=== PATIENT | male | born 1945 | race Caucasian/White ===

== ENCOUNTER 2018-12-08 21:58 | Inpatient (IN) | payer MEDICARE, MEDICAID ==
--- NOTE | 2018-12-08 22:17 | ED Physician Chart ---
ED Chief Complaint/HPI - Patient Information Date Seen:: 12/08/18 Time Seen:: 22:00 Chief Complaint:: depression History of Present Illness:: At his custodial facility patient stated earlier today that he had the desire to . He has no plans for how that might come about. Allergies:: Allergies Allergy/AdvReac Type Severity Reaction Status Date / Time iodine Allergy Verified 12/08/18 22:08 tamsulosin [From Flomax] Allergy Verified 12/08/18 22:08 Historian:: Patient Review:: Transfer documents Reviewed ED Review of Systems - Review of Systems General/Constitutional: No fever, No chills, No weight loss, No weakness, No diaphoresis, No edema, No loss of appetite Skin: No skin lesions, No rash, No bruising Head: No headache, No light-headedness Eyes: No loss of vision, No pain, No diplopia ENT: No earache, No nasal drainage, No sore throat, No tinnitus Neck: No neck pain, No swelling, No thyromegaly, No stiffness, No mass noted Cardio Vascular: No chest pain, No palpitations, No PND, No orthopnea, No edema Pulmonary: No SOB, No cough, No sputum, No wheezing GI: No nausea, No vomiting, No diarrhea, No pain, No melena, No hematochezia, No constipation, No hematemesis G/U: No dysuria, No frequency, No hematuria Musculoskeletal: No bone or joint pain, No back pain, No muscle pain Endocrine: No polyuria, No polydipsia Psychiatric: Depression, No anxiety, Suicidal ideation Hematopoietic: No bruising, No lymphadenopathy Allergic/Immuno: No urticaria, No angioedema Neurological: No syncope, No focal symptoms, No weakness, No paresthesia, No headache, No seizure, No dizziness, No confusion, No vertigo ED Past Medical History - Past Medical History Past Medical History: Other (chronic back pain) Family History: HTN Social History: Smoker Employment:: Smokes 6 cigarettes a day and stopped drinking alcohol 25 years ago Surgical History: other (rods placed in spine) Psychiatricy History: None Medication: Reviewed Family Medical History - Family Member Mother History Unknown: Yes ED Physical Exam - Physical Examination General/Constitutional: Awake, Well-developed, well-nourished, Alert, No distress, GCS 15, Non-toxic appearing, Ambulatory Head: Atraumatic Eyes: Lids, conjuctiva normal, PERRL, EOMI Skin: Nl inspection, No rash, No skin lesions, No ecchymosis, Well hydrated, No lymphadenopathy ENMT: External ears, nose nl, Nasal exam nl Other ENMT comments:: Full upper and lower dentures Neck: Nontender, Full ROM w/o pain, No JVD, No nuchal rigidity, No bruit, No mass, No stridor Respiratory: Nl effort/Exclusion, Clear to Auscultation, No Wheeze/Rhonchi/Rales Cardio Vascular: RRR, No murmur, gallop, rubs, NL S1 S2 GI: No tenderness/rebounding/guarding, No organomegaly, No hernia, Normal BS's, Nondistended, No mass/bruits, No McBurney tenderness : No CVA tenderness Extremities: No tenderness or effusion, Full ROM, normal strength in all extremities, No edema, Normal digits & nails Neuro/Psych: Alert/oriented, DTR's symmetric, Normal sensory exam, Normal motor strength, Judgement/insight normal, Mood normal, Normal gait, No focal deficits Misc: Normal back, No paraspinal tenderness ED Labs/Radiology/EKG Results - Lab Results Results: Laboratory Results WBC 6.9 Th/cmm (4.8-10.8) 12/08/18 22:18 RBC 3.76 Mil/cmm (3.80-5.80) L 12/08/18 22:18 Hgb 11.4 gm/dL (12-16) L 12/08/18 22:18 Hct 34.1 % (41.0-60) L 12/08/18 22:18 MCV 90.7 fl (80-99) 12/08/18 22:18 MCH 30.3 pg (27.0-31.0) 12/08/18 22:18 MCHC Differential 33.4 pg (28.0-36.0) 12/08/18 22:18 RDW 14.0 % (11.5-20.0) 12/08/18 22:18 Plt Count 274 Th/cmm (150-400) 12/08/18 22:18 MPV 8.4 fl 12/08/18 22:18 Neutrophils % 71.0 % (40.0-80.0) 12/08/18 22:18 Lymphocytes % 17.7 % (20.0-50.0) L 12/08/18 22:18 Monocytes % 8.1 % (2.0-10.0) 12/08/18 22:18 Eosinophils % 2.8 % (0.0-5.0) 12/08/18 22:18 Basophils % 0.4 % (0.0-2.0) 12/08/18 22:18 Sodium 144 mEq/L (136-145) 12/08/18 22:18 Potassium 3.7 mEq/L (3.5-5.1) 12/08/18 22:18 Chloride 107 mEq/L (98-107) 12/08/18 22:18 Carbon Dioxide 27.8 mEq/L (21.0-31.0) 12/08/18 22:18 Anion Gap 12.9 (7.0-16.0) 12/08/18 22:18 BUN 39 mg/dL (7-25) H 12/08/18 22:18 Creatinine 2.3 mg/dL (0.7-1.3) H 12/08/18 22:18 Est GFR ( Amer) TNP 12/08/18 22:18 Est GFR (Non-Af Amer) TNP 12/08/18 22:18 BUN/Creatinine Ratio 17.0 12/08/18 22:18 Glucose 115 mg/dL (70-105) H 12/08/18 22:18 Calcium 9.4 mg/dL (8.6-10.3) 12/08/18 22:18 Total Bilirubin 0.5 mg/dL (0.3-1.0) 12/08/18 22:18 AST 7 U/L (13-39) L 12/08/18 22:18 ALT 8 U/L (7-52) 12/08/18 22:18 Alkaline Phosphatase 49 U/L (34-104) 12/08/18 22:18 Total Protein 6.4 gm/dL (6.0-8.3) 12/08/18 22:18 Albumin 4.0 gm/dL (4.2-5.5) L 12/08/18 22:18 Globulin 2.4 gm/dL 12/08/18 22:18 Albumin/Globulin Ratio 1.7 (1.0-1.8) 12/08/18 22:18 Triglycerides 110 mg/dL (<150) 12/08/18 22:18 Cholesterol 188 mg/dL (<200) 12/08/18 22:18 LDL Cholesterol Direct 132 mg/dL (75-193) 12/08/18 22:18 HDL Cholesterol 39 mg/dL (23-92) 12/08/18 22:18 - EKG Interpretations Rate & Rhythm: normal sinus rhythm with a rate of 63 [place]: normal Comments:: Left ventricular hypertrophy ED Septic Shock - . Is Septic Shock (SBP<90, OR Lactate>4 mmol\L) present?: No ED Reassessment (Disposition) - Reassessment Reassessment Condition:: Unchanged - Diagnosis Diagnosis:: Depression; nicotine use - Patient Disposition Admitted to:: [facility] Admitting Medical Physician:: Boby Alva Admitting Psych Physician:: Alba Hdz Condition at Disposition:: Stable, Unchanged
[2018-12-08 22:25] LABS: % BASOPHILS 0.4 % (0.0-2.0); % EOSINOPHILS 2.8 % (0.0-5.0); % LYMPHOCYTES 17.7 % (20.0-50.0); % MONOCYTES 8.1 % (2.0-10.0); EOSINOPHILE ABSOLUTE 0.2 Th/cmm (0.1-0.4); HEMATOCRIT 34.1 % (41.0-60); HEMOGLOBIN 11.4 gm/dL (12-16); LYMPHOCYTE ABSOLUTE 1.2 Th/cmm (1.5-3.0); MEAN CELL VOLUME 90.7 fl (80-99); MEAN CORPUSCULAR HEMOGLOBIN 30.3 pg (27.0-31.0); MEAN CORPUSCULAR HGB CONC 33.4 pg (28.0-36.0); MEAN PLATELET VOLUME 8.4 fl; MONOCYTE ABSOLUTE 0.6 Th/cmm (0.3-1.0); NEUTROPHILE ABSOLUTE 4.9 Th/cmm (1.8-8.0); PLATELET COUNT 274 Th/cmm (150-400); RED BLOOD COUNT 3.76 Mil/cmm (3.80-5.80); WHITE BLOOD COUNT 6.9 Th/cmm (4.8-10.8)
[2018-12-08 22:43] LABS: ALB/GLOB RATIO 1.7 (1.0-1.8); ALKALINE PHOSPHATASE 49 U/L (34-104); ANION GAP 12.9 (7.0-16.0); BILIRUBIN,TOTAL 0.5 mg/dL (0.3-1.0); BUN - UREA NITROGEN 39 mg/dL (7-25); CALCIUM SERUM 9.4 mg/dL (8.6-10.3); CARBON DIOXIDE 27.8 mEq/L (21.0-31.0); CHLORIDE 107 mEq/L (98-107); CHOLESTEROL 188 mg/dL (<200); CREATININE - SERUM 2.3 mg/dL (0.7-1.3); GLUCOSE 115 mg/dL (70-105); HDL -HIGH DENSITY LIPOPROTEIN 39 mg/dL (23-92); POTASSIUM SERUM 3.7 mEq/L (3.5-5.1); SGOT 7 U/L (13-39); SGPT/ALT 8 U/L (7-52); SODIUM SERUM 144 mEq/L (136-145); TOTAL PROTEIN,SERUM 6.4 gm/dL (6.0-8.3); TRIGLYCERIDES 110 mg/dL (<150)
[2018-12-09] MEDS ORDERED: Magnesium Hydroxide (MOM) 30 mL UDC PO PRN (01:06)
[2018-12-09 01:34] VITALS: BP 130/78
[2018-12-09] MEDS: Albuterol Nebulizer 2.5mg/3mL HHN SCH ×2 (08:00→13:00)
[2018-12-09 08:08] LABS: CHOLESTEROL 195 mg/dL (<200); HDL -HIGH DENSITY LIPOPROTEIN 40 mg/dL (23-92); TRIGLYCERIDES 115 mg/dL (<150)
[2018-12-09] MEDS: Heparin Sod 5,000Units/ML 5,000 UNITS/ML VIAL SUBQ SCH ×2 (08:34→21:53)
[2018-12-09] MEDS: Menthol/Zinc Oxide Oint 113gm Tube TP SCH (09:00)
[2018-12-09] MEDS: Budesonide 0.5 Mg/2 mL Ud HHN SCH (09:00)
--- NOTE | 2018-12-09 21:05 | History & Physical ---
ADMIT DATE: HISTORY OF PRESENT ILLNESS: The patient is a 73-year-old male with long history of psychosis, admitted to [facility] under Dr. Hdz's service for evaluation and treatment. The patient denies any chest pain, shortness of breath, nausea, vomiting, fever or chills. PAST MEDICAL HISTORY: Significant for gastroesophageal reflux, chronic kidney disease and psychosis. PAST SURGICAL HISTORY: No recent surgery. ALLERGIES: None. SOCIAL HISTORY: Chronic smoker. No alcohol, no drugs. FAMILY HISTORY: Noncontributory. MEDICATIONS: Follow admission reconciliation. REVIEW OF SYSTEMS: RENAL SYSTEM: No history of chronic renal disorder. CARDIOVASCULAR SYSTEM: No coronary artery disease. ENDOCRINE SYSTEM: No diabetes or thyroid problem. GASTROINTESTINAL SYSTEM: No upper or lower gastrointestinal bleed. NEUROLOGICAL SYSTEM: No seizure disorder. SKELETOMUSCULAR SYSTEM: No muscular dystrophy. HEMATOLOGICAL SYSTEM: No bleeding tendencies. RESPIRATORY SYSTEM: No asthma. GENITOURINARY: No dysuria or hematuria. PHYSICAL EXAMINATION: GENERAL: She is awake, alert, oriented. VITAL SIGNS: Temperature is 97.8, heart rate 65, blood pressure 137/78. HEENT: Normocephalic. Pupils reacting equal to light and accommodation. Sclerae clear. NECK: Supple. Negative for lymphadenopathy, JVD, or bruit. CHEST: Entry of air bilaterally mild diminished. HEART: S1, S2 normal. No murmur or gallop rhythm. ABDOMEN: Soft, bowel sounds positive. EXTREMITIES: No edema. NEUROLOGIC: Awake, alert, mildly confused. No focal muscle deficits. Cranial nerves 2-12 are intact. LABORATORY DATA: White blood 6.9, hemoglobin 11.4, hematocrit 34.1, and platelet is 274. Sodium 144, potassium 3.7, BUN 39, creatinine 2.3. ASSESSMENT: 1. Chronic obstructive pulmonary disease. 2. Gastroesophageal reflux. 3. Anemia. 4. Psychosis. PLAN: The patient admitted to the hospital under Dr. Hdz's service. Medical problems addressed during hospitalization is psychosis. Medical problems to be addressed at discharge are anemia, COPD. The patient is medically stable for activity. The patient is a full code. Thank you, Dr. Hdz, for asking me to see your patient. JOB# [id number]
[2018-12-10] MEDS: Heparin Sod 5,000Units/ML 5,000 UNITS/ML VIAL SUBQ SCH ×2 (08:41→20:28)
[2018-12-10] MEDS: Menthol/Zinc Oxide Oint 113gm Tube TP SCH ×2 (08:41→16:02)
[2018-12-10] MEDS: Escitalopram Oxalate 5 mg Tab PO SCH (16:01)
--- NOTE | 2018-12-10 18:46 | Internal Medicine Prog Note ---
Internal Medicine Subjective - Subjective Service Date: 12/10/18 Patient seen and examined:: without staff (HE FEELS WELL) Patient is:: awake, confused Per staff patient has:: no adverse event Internal Medicine Objective - Results Result Diagrams: 12/08/18 22:18 12/08/18 22:18 Recent Labs: Laboratory Last Values WBC 6.9 Th/cmm (4.8-10.8) 12/08/18 22:18 RBC 3.76 Mil/cmm (3.80-5.80) L 12/08/18 22:18 Hgb 11.4 gm/dL (12-16) L 12/08/18 22:18 Hct 34.1 % (41.0-60) L 12/08/18 22:18 MCV 90.7 fl (80-99) 12/08/18 22:18 MCH 30.3 pg (27.0-31.0) 12/08/18 22:18 MCHC Differential 33.4 pg (28.0-36.0) 12/08/18 22:18 RDW 14.0 % (11.5-20.0) 12/08/18 22:18 Plt Count 274 Th/cmm (150-400) 12/08/18 22:18 MPV 8.4 fl 12/08/18 22:18 Neutrophils % 71.0 % (40.0-80.0) 12/08/18 22:18 Lymphocytes % 17.7 % (20.0-50.0) L 12/08/18 22:18 Monocytes % 8.1 % (2.0-10.0) 12/08/18 22:18 Eosinophils % 2.8 % (0.0-5.0) 12/08/18 22:18 Basophils % 0.4 % (0.0-2.0) 12/08/18 22:18 Sodium 144 mEq/L (136-145) 12/08/18 22:18 Potassium 3.7 mEq/L (3.5-5.1) 12/08/18 22:18 Chloride 107 mEq/L (98-107) 12/08/18 22:18 Carbon Dioxide 27.8 mEq/L (21.0-31.0) 12/08/18 22:18 Anion Gap 12.9 (7.0-16.0) 12/08/18 22:18 BUN 39 mg/dL (7-25) H 12/08/18 22:18 Creatinine 2.3 mg/dL (0.7-1.3) H 12/08/18 22:18 Est GFR ( Amer) TNP 12/08/18 22:18 Est GFR (Non-Af Amer) TNP 12/08/18 22:18 BUN/Creatinine Ratio 17.0 12/08/18 22:18 Glucose 115 mg/dL (70-105) H 12/08/18 22:18 Calcium 9.4 mg/dL (8.6-10.3) 12/08/18 22:18 Total Bilirubin 0.5 mg/dL (0.3-1.0) 12/08/18 22:18 AST 7 U/L (13-39) L 12/08/18 22:18 ALT 8 U/L (7-52) 12/08/18 22:18 Alkaline Phosphatase 49 U/L (34-104) 12/08/18 22:18 Total Protein 6.4 gm/dL (6.0-8.3) 12/08/18 22:18 Albumin 4.0 gm/dL (4.2-5.5) L 12/08/18 22:18 Globulin 2.4 gm/dL 12/08/18 22:18 Albumin/Globulin Ratio 1.7 (1.0-1.8) 12/08/18 22:18 Triglycerides 115 mg/dL (<150) 12/09/18 07:36 Cholesterol 195 mg/dL (<200) 12/09/18 07:36 LDL Cholesterol Direct 136 mg/dL (75-193) 12/09/18 07:36 HDL Cholesterol 40 mg/dL (23-92) 12/09/18 07:36 TSH 1.53 uIU/ml (0.34-5.60) 12/08/18 22:18 Valproic Acid 31.1 ug/mL (50.0-100.0) L 12/08/18 22:18 RPR NONREACTIVE (NONREACTIVE) 12/08/18 22:18 - Physical Exam Vitals and I&O: Vital Signs Temp 98.1 F 12/10/18 14:00 Pulse 77 12/10/18 14:00 Resp 20 12/10/18 14:00 BP 120/70 12/10/18 14:00 Pulse Ox 96 12/10/18 14:00 Intake & Output 12/09/18 12/10/18 12/10/18 18:59 06:59 18:59 Intake Total 950 120 Balance 950 120 Intake: Oral 950 120 Other: # Voids 3 2 # Bowel Movements 1 0 Active Medications: Current Medications Acetaminophen (Tylenol) 650 mg PO Q4HR PRN PRN Reason: Pain or Fever >101 Stop: 02/07/19 01:05 Last Admin: 12/09/18 06:53 Dose: 650 mg Albuterol Sulfate (Albuterol 2.5mg/3ml Neb Ud) 2.5 mg HHN Q6HRT [facility] Stop: 02/07/19 07:59 Last Admin: 12/09/18 13:00 Dose: Not Given Bisacodyl (Dulcolax 10 Mg Supp) 10 mg RC DAILY PRN PRN Reason: Constipation Stop: 02/07/19 01:05 Budesonide (Pulmicort) 0.5 mg HHN BIDRT [facility] Stop: 02/07/19 07:59 Last Admin: 12/09/18 09:00 Dose: Not Given Calamine/Phenol (Calmoseptine) 1 appl TP BID [facility] Stop: 02/07/19 08:59 Last Admin: 12/10/18 16:02 Dose: 1 appl Divalproex Sodium (Depakote Er) 250 mg PO DAILY [facility]; Protocol Stop: 02/07/19 08:59 Last Admin: 12/10/18 16:01 Dose: 250 mg Escitalopram Oxalate (Lexapro) 5 mg PO DAILY [facility]; Protocol Stop: 02/08/19 08:59 Last Admin: 12/10/18 16:01 Dose: 5 mg Famotidine (Pepcid) 20 mg PO DAILY [facility] Stop: 02/07/19 08:59 Last Admin: 12/10/18 08:40 Dose: 20 mg Fludrocortisone Acetate (Florinef) 0.1 mg PO BID [facility] Stop: 02/07/19 08:59 Last Admin: 12/10/18 16:01 Dose: 0.1 mg Heparin Sodium (Porcine) (Heparin) 5,000 units SUBQ Q12HR [facility] Stop: 02/07/19 08:59 Last Admin: 12/10/18 08:41 Dose: 5,000 units Magnesium Hydroxide (Milk Of Magnesia) 30 ml PO DAILY PRN PRN Reason: Constipation Stop: 02/07/19 01:05 Midodrine (Proamatine) 5 mg PO DAILY [facility] Stop: 02/07/19 08:59 Last Admin: 12/10/18 08:55 Dose: Not Given Ondansetron HCl (Zofran Odt) 4 mg PO Q8HR PRN PRN Reason: Nausea Stop: 02/07/19 01:05 Senna (Senna) 8.6 mg PO BID [facility] Stop: 02/07/19 08:59 Last Admin: 12/10/18 16:02 Dose: 8.6 mg General: alert, demented HEENT: NC/AT, PERRLA, EOMI, anicteric sclerae, throat clear Neck: Supple, No JVD, No thyromegaly, +2 carotid pulse wo bruit, No LAD Cardiovascular: RRR, Normal S1, Normal S2, without murmur Abdomen: soft, non-tender Extremities: clear Neurological: no change Internal Medicine Assmt/Plan - Assessment Assessment: 1.COPD. 2.ANEMIA. 3.PSYCHOSIS. Nutritional Asmnt/Malnutr-PDOC - Dietary Evaluation Malnutrition Findings (Please click <Entered> for more info): Nutritional Asmnt/Malnutrition Start: 12/09/18 10: 09 Text: Status: Complete Freq: Protocol: Document 12/09/18 10:09 LCHENG (Rec: 12/09/18 10:22 LCHENG [email or web address]) Nutritional Asmnt/Malnutrition Patient General Information Nutritional Screening High Risk Consult Diagnosis severe depression Pertinent Medical Hx/Surgical Hx chronic back pain Subjective Information Consult received for erythema to both buttocks. Lakhwinder Draper noted. Current Diet Order/ Nutrition Support regular Pertinent Medications pepcid, heparin, senna Pertinent Labs 5/ BUN 39, Cr 2.3, GLucose 115, ALb 4.0 Nutritional Hx/Data Height 1.75 m Height (Calculated Centimeters) 175.3 Current Weight (lbs) 79.379 kg Weight (Calculated Kilograms) 79.4 Weight (Calculated Grams) 77316.7 [place] Body Weight 148 Body Mass Index (BMI) 25.8 Weight Status Overweight GI Symptoms GI Symptoms None Last BM none Difficult in: None Skin Integrity/Comment: erythema to R/L buttock Estimated Nutritional Goals BEE in Kcals: Using Current wt Calories/Kcals/Kg 23-27 Kcals Calculated 1723-1108 Protein: Using Current wt Protein g/k.8 Protein Calculated 63 Fluid: ml 1817-2133ml (1ml/kcal) Nutritional Problem No current Nutrition Prob Problem N/A Intervention/Recommendation Comments 1. Continue with regular diet as ordered. 2. Monitor PO intake, wt, labs and skin integrity 3. F/U as moderate risk in 3-5 days Expected Outcomes/Goals Expected Outcomes/Goals 1. PO intake to meet at least 75% of nutritional needs. 2. Wt stability, skin to remain intact, labs to approach WNL.
--- NOTE | 2018-12-10 21:18 | Progress Notes ---
DATE: 12/10/2018 Case was discussed with staff of the patient and reviewed records. I also met with his who happens to be there. The patient was able to recognize his . His is 86 years of age, 14 years senior to him. She reports they lost their appointment and that is when he started feeling depressed. The patient tolerated the Lexapro with no side effects. He tend to smile. However, he is not a very good historian. He is sleeping better, eating better. No side effects of the medication, no sedation, no nausea. We will continue to work with the patient in group therapy, milieu therapy, and adjust medication as needed. JOB# [id number]
[2018-12-11] MEDS: Albuterol Nebulizer 2.5mg/3mL HHN SCH ×3 (08:27→19:14)
[2018-12-11] MEDS: Budesonide 0.5 Mg/2 mL Ud HHN SCH ×2 (08:28→19:14)
[2018-12-11] MEDS: Heparin Sod 5,000Units/ML 5,000 UNITS/ML VIAL SUBQ SCH ×2 (09:09→22:40)
[2018-12-11] MEDS: Escitalopram Oxalate 5 mg Tab PO SCH (09:12)
[2018-12-11] MEDS: Menthol/Zinc Oxide Oint 113gm Tube TP SCH ×2 (09:13→17:05)
--- NOTE | 2018-12-11 18:01 | Internal Medicine Prog Note ---
Internal Medicine Subjective - Subjective Service Date: 12/11/18 Patient seen and examined:: without staff (HE IS DOIG BETTER) Patient is:: awake, confused Per staff patient has:: no adverse event Internal Medicine Objective - Results Result Diagrams: 12/08/18 22:18 12/08/18 22:18 Recent Labs: Laboratory Last Values WBC 6.9 Th/cmm (4.8-10.8) 12/08/18 22:18 RBC 3.76 Mil/cmm (3.80-5.80) L 12/08/18 22:18 Hgb 11.4 gm/dL (12-16) L 12/08/18 22:18 Hct 34.1 % (41.0-60) L 12/08/18 22:18 MCV 90.7 fl (80-99) 12/08/18 22:18 MCH 30.3 pg (27.0-31.0) 12/08/18 22:18 MCHC Differential 33.4 pg (28.0-36.0) 12/08/18 22:18 RDW 14.0 % (11.5-20.0) 12/08/18 22:18 Plt Count 274 Th/cmm (150-400) 12/08/18 22:18 MPV 8.4 fl 12/08/18 22:18 Neutrophils % 71.0 % (40.0-80.0) 12/08/18 22:18 Lymphocytes % 17.7 % (20.0-50.0) L 12/08/18 22:18 Monocytes % 8.1 % (2.0-10.0) 12/08/18 22:18 Eosinophils % 2.8 % (0.0-5.0) 12/08/18 22:18 Basophils % 0.4 % (0.0-2.0) 12/08/18 22:18 Sodium 144 mEq/L (136-145) 12/08/18 22:18 Potassium 3.7 mEq/L (3.5-5.1) 12/08/18 22:18 Chloride 107 mEq/L (98-107) 12/08/18 22:18 Carbon Dioxide 27.8 mEq/L (21.0-31.0) 12/08/18 22:18 Anion Gap 12.9 (7.0-16.0) 05/02/19 22:18 BUN 39 mg/dL (7-25) H 12/08/18 22:18 Creatinine 2.3 mg/dL (0.7-1.3) H 12/08/18 22:18 Est GFR ( Amer) TNP 12/08/18 22:18 Est GFR (Non-Af Amer) TNP 12/08/18 22:18 BUN/Creatinine Ratio 17.0 12/08/18 22:18 Glucose 115 mg/dL (70-105) H 12/08/18 22:18 Calcium 9.4 mg/dL (8.6-10.3) 12/08/18 22:18 Total Bilirubin 0.5 mg/dL (0.3-1.0) 12/08/18 22:18 AST 7 U/L (13-39) L 12/08/18 22:18 ALT 8 U/L (7-52) 12/08/18 22:18 Alkaline Phosphatase 49 U/L (34-104) 12/08/18 22:18 Total Protein 6.4 gm/dL (6.0-8.3) 12/08/18 22:18 Albumin 4.0 gm/dL (4.2-5.5) L 12/08/18 22:18 Globulin 2.4 gm/dL 12/08/18 22:18 Albumin/Globulin Ratio 1.7 (1.0-1.8) 12/08/18 22:18 Triglycerides 115 mg/dL (<150) 12/09/18 07:36 Cholesterol 195 mg/dL (<200) 12/09/18 07:36 LDL Cholesterol Direct 136 mg/dL (75-193) 12/09/18 07:36 HDL Cholesterol 40 mg/dL (23-92) 12/09/18 07:36 TSH 1.53 uIU/ml (0.34-5.60) 12/08/18 22:18 Valproic Acid 31.1 ug/mL (50.0-100.0) L 12/08/18 22:18 RPR NONREACTIVE (NONREACTIVE) 12/08/18 22:18 - Physical Exam Vitals and I&O: Vital Signs Temp 97.4 F 12/11/18 14:07 Pulse 81 12/11/18 14:07 Resp 18 12/11/18 17:21 BP 104/61 12/11/18 14:07 Pulse Ox 95 12/11/18 14:07 Intake & Output 12/10/18 12/11/18 12/11/18 18:59 06:59 18:59 Intake Total 1400 120 Balance 1400 120 Intake: Oral 1400 120 Other: # Voids 3 2 # Bowel Movements 0 0 Active Medications: Current Medications Acetaminophen (Tylenol) 650 mg PO Q4HR PRN PRN Reason: Pain or Fever >101 Stop: 02/07/19 01:05 Last Admin: 12/09/18 06:53 Dose: 650 mg Albuterol Sulfate (Albuterol 2.5mg/3ml Neb Ud) 2.5 mg HHN Q6HRT [facility] Stop: 02/07/19 07:59 Last Admin: 12/11/18 13:00 Dose: Not Given Bisacodyl (Dulcolax 10 Mg Supp) 10 mg RC DAILY PRN PRN Reason: Constipation Stop: 02/07/19 01:05 Budesonide (Pulmicort) 0.5 mg HHN BIDRT [facility] Stop: 02/07/19 07:59 Last Admin: 12/11/18 08:28 Dose: 0.5 mg Calamine/Phenol (Calmoseptine) 1 appl TP BID [facility] Stop: 02/07/19 08:59 Last Admin: 12/11/18 17:05 Dose: 1 appl Divalproex Sodium (Depakote Er) 250 mg PO DAILY [facility]; Protocol Stop: 02/07/19 08:59 Last Admin: 12/11/18 09:12 Dose: 250 mg Escitalopram Oxalate (Lexapro) 5 mg PO DAILY [facility]; Protocol Stop: 02/08/19 08:59 Last Admin: 12/11/18 09:12 Dose: 5 mg Famotidine (Pepcid) 20 mg PO DAILY [facility] Stop: 02/07/19 08:59 Last Admin: 12/11/18 09:12 Dose: 20 mg Fludrocortisone Acetate (Florinef) 0.1 mg PO BID [facility] Stop: 02/07/19 08:59 Last Admin: 12/11/18 16:55 Dose: 0.1 mg Heparin Sodium (Porcine) (Heparin) 5,000 units SUBQ Q12HR [facility] Stop: 02/07/19 08:59 Last Admin: 12/11/18 09:09 Dose: 5,000 units Magnesium Hydroxide (Milk Of Magnesia) 30 ml PO DAILY PRN PRN Reason: Constipation Stop: 02/07/19 01:05 Midodrine (Proamatine) 5 mg PO DAILY [facility] Stop: 02/07/19 08:59 Last Admin: 12/11/18 09:09 Dose: 5 mg Ondansetron HCl (Zofran Odt) 4 mg PO Q8HR PRN PRN Reason: Nausea Stop: 02/07/19 01:05 Senna (Senna) 8.6 mg PO BID [facility] Stop: 02/07/19 08:59 Last Admin: 12/11/18 16:51 Dose: 8.6 mg General: alert, demented HEENT: NC/AT, PERRLA, EOMI, anicteric sclerae, throat clear Neck: Supple, No JVD, No thyromegaly, +2 carotid pulse wo bruit, No LAD Cardiovascular: RRR, Normal S1, Normal S2, without murmur Abdomen: soft, non-tender Extremities: clear Neurological: no change Internal Medicine Assmt/Plan - Assessment Assessment: 1.COPD. 2.ANEMIA. 3.PSYCHOSIS. - Plan Plan: CONTINUE ON CURRENT MEDICATION AND DIET. Nutritional Asmnt/Malnutr-PDOC - Dietary Evaluation Malnutrition Findings (Please click <Entered> for more info): Nutritional Asmnt/Malnutrition Start: 12/09/18 10: 09 Text: Status: Complete Freq: Protocol: Document 12/09/18 10:09 LCHENG (Rec: 12/09/18 10:22 LCHENG [email or web address]) Nutritional Asmnt/Malnutrition Patient General Information Nutritional Screening High Risk Consult Diagnosis severe depression Pertinent Medical Hx/Surgical Hx chronic back pain Subjective Information Consult received for erythema to both buttocks. Lakhwinder Draper noted. Current Diet Order/ Nutrition Support regular Pertinent Medications pepcid, heparin, senna Pertinent Labs 5/2 BUN 39, Cr 2.3, GLucose 115, ALb 4.0 Nutritional Hx/Data Height 1.75 m Height (Calculated Centimeters) 175.3 Current Weight (lbs) 79.379 kg Weight (Calculated Kilograms) 79.4 Weight (Calculated Grams) 43677.7 [place] Body Weight 148 Body Mass Index (BMI) 25.8 Weight Status Overweight GI Symptoms GI Symptoms None Last BM none Difficult in: None Skin Integrity/Comment: erythema to R/L buttock Estimated Nutritional Goals BEE in Kcals: Using Current wt Calories/Kcals/Kg 23-27 Kcals Calculated 7895-2272 Protein: Using Current wt Protein g/k.8 Protein Calculated 63 Fluid: ml 1817-2133ml (1ml/kcal) Nutritional Problem No current Nutrition Prob Problem N/A Intervention/Recommendation Comments 1. Continue with regular diet as ordered. 2. Monitor PO intake, wt, labs and skin integrity 3. F/U as moderate risk in 3-5 days Expected Outcomes/Goals Expected Outcomes/Goals 1. PO intake to meet at least 75% of nutritional needs. 2. Wt stability, skin to remain intact, labs to approach WNL.
--- NOTE | 2018-12-11 21:57 | Progress Notes ---
DATE: 12/11/2018 Case was discussed with staff of the patient, reviewed records. The patient continues to appear to be depressed, continues to be internally preoccupied, stays to himself. He is able to smile. He has been not a very good historian. He tolerated the medication with no side effects, no sedation, no nausea. He is on Lexapro 5 mg daily with no side effects, no sedation, no nausea and we will continue to work with the patient in group therapy, milieu therapy, and adjust the medication as needed. JOB# [id number]
[2018-12-12] MEDS: Albuterol Nebulizer 2.5mg/3mL HHN SCH ×4 (00:24→19:30)
[2018-12-12] MEDS: Budesonide 0.5 Mg/2 mL Ud HHN SCH ×2 (07:20→19:30)
[2018-12-12] MEDS: Escitalopram Oxalate 5 mg Tab PO SCH (09:29)
[2018-12-12] MEDS: Heparin Sod 5,000Units/ML 5,000 UNITS/ML VIAL SUBQ SCH ×2 (09:29→21:11)
--- NOTE | 2018-12-12 13:50 | Psychiatric Evaluation ---
DATE OF SERVICE: IDENTIFYING INFORMATION: The patient is a 73-year-old male. CHIEF COMPLAINT: The patient apparently said "I said the wrong thing." He expresses suicidal ideation. HISTORY OF PRESENT ILLNESS: The patient was admitted because of depression, agitation and suicidal ideation, no specific plan. The patient reports he has been unable to sleep, unable to eat. I managed to talk to his who said that at the time they left their apartment and he went to a nursing facility, he was okay then and has been depressed since then. His memory also has been poor. PAST PSYCHIATRIC HISTORY: The patient denies prior psychiatric treatment. He denies prior suicide attempt. He denies any prior substance abuse. MEDICAL HISTORY: Deferred to the medical doctor. FAMILY AND SOCIAL HISTORY: The patient has been . His is 84 years of age. He has 1 son. Apparently, that is his 's son and his son is a physician. He lives in [place], [place]. The patient denies any history of abuse. No family psychotic disorder. The patient reports he has 12th grade education. He is retired.worked installing elevators MENTAL STATUS EXAMINATION: The patient is appropriately dressed, not well groomed. The patient was able to tell me the date. He admits to feeling depressed. He sometimes has difficulty with sleep and appetite. He reported he wanted to harm himself, but he has no specific plan. He was willing to contract for safety. He denies any visual or self-paranoia. Denies any intent to harm anyone. He was able to tell me the President of [facility]. He states his concentration is poor. Memory is poor. His short-term memory is poor, was not sure where he was living. He is living with his in reality. He moved to a nursing facility as they lost their apartment a few weeks ago. His insight about his illness fair. He knows he has depression. Judgment is poor with him wanting to harm himself. IMPRESSION: Major depression, recurrent, severe with no psychosis. MEDICAL DIAGNOSES: As per medical doctor. INITIAL TREATMENT PLAN: The patient will be started on Lexapro. We will do group therapy, milieu therapy, and individual therapy. ESTIMATED LENGTH OF STAY: 3-7 days. DISCHARGE CRITERIA: Decreasing depression, no longer suicidal. After discharge, outpatient treatment. [facility]# [id number]
[2018-12-12] MEDS: Menthol/Zinc Oxide Oint 113gm Tube TP SCH ×2 (16:19)
--- NOTE | 2018-12-12 19:00 | Internal Medicine Prog Note ---
Internal Medicine Subjective - Subjective Service Date: 12/12/18 Patient seen and examined:: without staff (HE IS DOING BETTER) Patient is:: awake, confused Per staff patient has:: no adverse event Internal Medicine Objective - Results Result Diagrams: 12/08/18 22:18 12/08/18 22:18 Recent Labs: Laboratory Last Values WBC 6.9 Th/cmm (4.8-10.8) 12/08/18 22:18 RBC 3.76 Mil/cmm (3.80-5.80) L 12/08/18 22:18 Hgb 11.4 gm/dL (12-16) L 12/08/18 22:18 Hct 34.1 % (41.0-60) L 12/08/18 22:18 MCV 90.7 fl (80-99) 12/08/18 22:18 MCH 30.3 pg (27.0-31.0) 12/08/18 22:18 MCHC Differential 33.4 pg (28.0-36.0) 12/08/18 22:18 RDW 14.0 % (11.5-20.0) 12/08/18 22:18 Plt Count 274 Th/cmm (150-400) 12/08/18 22:18 MPV 8.4 fl 12/08/18 22:18 Neutrophils % 71.0 % (40.0-80.0) 12/08/18 22:18 Lymphocytes % 17.7 % (20.0-50.0) L 12/08/18 22:18 Monocytes % 8.1 % (2.0-10.0) 12/08/18 22:18 Eosinophils % 2.8 % (0.0-5.0) 12/08/18 22:18 Basophils % 0.4 % (0.0-2.0) 12/08/18 22:18 Sodium 144 mEq/L (136-145) 12/08/18 22:18 Potassium 3.7 mEq/L (3.5-5.1) 12/08/18 22:18 Chloride 107 mEq/L (98-107) 12/08/18 22:18 Carbon Dioxide 27.8 mEq/L (21.0-31.0) 12/08/18 22:18 Anion Gap 12.9 (7.0-16.0) 12/08/18 22:18 BUN 39 mg/dL (7-25) H 12/08/18 22:18 Creatinine 2.3 mg/dL (0.7-1.3) H 12/08/18 22:18 Est GFR ( Amer) TNP 12/08/18 22:18 Est GFR (Non-Af Amer) TNP 12/08/18 22:18 BUN/Creatinine Ratio 17.0 12/08/18 22:18 Glucose 115 mg/dL (70-105) H 12/08/18 22:18 Calcium 9.4 mg/dL (8.6-10.3) 12/08/18 22:18 Total Bilirubin 0.5 mg/dL (0.3-1.0) 12/08/18 22:18 AST 7 U/L (13-39) L 12/08/18 22:18 ALT 8 U/L (7-52) 12/08/18 22:18 Alkaline Phosphatase 49 U/L (34-104) 12/08/18 22:18 Total Protein 6.4 gm/dL (6.0-8.3) 12/08/18 22:18 Albumin 4.0 gm/dL (4.2-5.5) L 12/08/18 22:18 Globulin 2.4 gm/dL 12/08/18 22:18 Albumin/Globulin Ratio 1.7 (1.0-1.8) 12/08/18 22:18 Triglycerides 115 mg/dL (<150) 12/09/18 07:36 Cholesterol 195 mg/dL (<200) 12/09/18 07:36 LDL Cholesterol Direct 136 mg/dL (75-193) 12/09/18 07:36 HDL Cholesterol 40 mg/dL (23-92) 12/09/18 07:36 TSH 1.53 uIU/ml (0.34-5.60) 12/08/18 22:18 Valproic Acid 31.1 ug/mL (50.0-100.0) L 12/08/18 22:18 RPR NONREACTIVE (NONREACTIVE) 12/08/18 22:18 - Physical Exam Vitals and I&O: Vital Signs Temp 98.3 F 12/12/18 15:50 Pulse 82 12/12/18 15:50 Resp 20 12/12/18 15:50 BP 132/72 12/12/18 15:50 Pulse Ox 97 12/12/18 15:50 Intake & Output 12/11/18 12/12/18 12/12/18 18:59 06:59 18:59 Intake Total 120 Balance 120 Intake: Oral 120 Other: # Voids 3 3 # Bowel Movements 1 Active Medications: Current Medications Acetaminophen (Tylenol) 650 mg PO Q4HR PRN PRN Reason: Pain or Fever >101 Stop: 02/07/19 01:05 Last Admin: 12/09/18 06:53 Dose: 650 mg Albuterol Sulfate (Albuterol 2.5mg/3ml Neb Ud) 2.5 mg HHN Q6HRT [facility] Stop: 02/07/19 07:59 Last Admin: 12/12/18 13:55 Dose: 2.5 mg Bisacodyl (Dulcolax 10 Mg Supp) 10 mg RC DAILY PRN PRN Reason: Constipation Stop: 02/07/19 01:05 Budesonide (Pulmicort) 0.5 mg HHN BIDRT [facility] Stop: 02/07/19 07:59 Last Admin: 12/12/18 07:20 Dose: 0.5 mg Calamine/Phenol (Calmoseptine) 1 appl TP BID [facility] Stop: 02/07/19 08:59 Last Admin: 12/12/18 16:19 Dose: 1 appl Divalproex Sodium (Depakote Er) 250 mg PO DAILY [facility]; Protocol Stop: 02/07/19 08:59 Last Admin: 12/12/18 09:23 Dose: 250 mg Donepezil HCl (Aricept) 5 mg PO HS [facility] Stop: 02/10/19 20:59 Escitalopram Oxalate (Lexapro) 10 mg PO DAILY [facility]; Protocol Stop: 02/11/19 08:59 Famotidine (Pepcid) 20 mg PO DAILY [facility] Stop: 02/07/19 08:59 Last Admin: 12/12/18 09:29 Dose: 20 mg Fludrocortisone Acetate (Florinef) 0.1 mg PO BID [facility] Stop: 02/07/19 08:59 Last Admin: 12/12/18 16:19 Dose: 0.1 mg Heparin Sodium (Porcine) (Heparin) 5,000 units SUBQ Q12HR [facility] Stop: 07/02/19 08:59 Last Admin: 12/12/18 09:29 Dose: 5,000 units Magnesium Hydroxide (Milk Of Magnesia) 30 ml PO DAILY PRN PRN Reason: Constipation Stop: 02/07/19 01:05 Midodrine (Proamatine) 5 mg PO DAILY [facility] Stop: 02/07/19 08:59 Last Admin: 12/12/18 09:29 Dose: 5 mg Ondansetron HCl (Zofran Odt) 4 mg PO Q8HR PRN PRN Reason: Nausea Stop: 02/07/19 01:05 Senna (Senna) 8.6 mg PO BID [facility] Stop: 02/07/19 08:59 Last Admin: 12/12/18 16:19 Dose: 8.6 mg General: alert, demented HEENT: NC/AT, PERRLA, EOMI, anicteric sclerae, throat clear Neck: Supple, No JVD, No thyromegaly, +2 carotid pulse wo bruit, No LAD Cardiovascular: RRR, Normal S1, Normal S2, without murmur Abdomen: soft, non-tender Extremities: clear Neurological: no change Internal Medicine Assmt/Plan - Assessment Assessment: 1.COPD. 2.ANEMIA. 3.PSYCHOSIS. - Plan Plan: CONTINUE ON CURRENT MEDICATION AND DIET. Nutritional Asmnt/Malnutr-PDOC - Dietary Evaluation Malnutrition Findings (Please click <Entered> for more info): Nutritional Asmnt/Malnutrition Start: 12/09/18 10: 09 Text: Status: Complete Freq: Protocol: Document 12/09/18 10:09 LCHENG (Rec: 12/09/18 10:22 [email or web address]) Nutritional Asmnt/Malnutrition Patient General Information Nutritional Screening High Risk Consult Diagnosis severe depression Pertinent Medical Hx/Surgical Hx chronic back pain Subjective Information Consult received for erythema to both buttocks. Lakhwinder 12 noted. Current Diet Order/ Nutrition Support regular Pertinent Medications pepcid, heparin, senna Pertinent Labs 5/2 BUN 39, Cr 2.3, GLucose 115, ALb 4.0 Nutritional Hx/Data Height 1.75 m Height (Calculated Centimeters) 175.3 Current Weight (lbs) 79.379 kg Weight (Calculated Kilograms) 79.4 Weight (Calculated Grams) 15628.7 [place] Body Weight 148 Body Mass Index (BMI) 25.8 Weight Status Overweight GI Symptoms GI Symptoms None Last BM none Difficult in: None Skin Integrity/Comment: erythema to R/L buttock Estimated Nutritional Goals BEE in Kcals: Using Current wt Calories/Kcals/Kg 23-27 Kcals Calculated 2824-7928 Protein: Using Current wt Protein g/k.8 Protein Calculated 63 Fluid: ml 1817-2133ml (1ml/kcal) Nutritional Problem No current Nutrition Prob Problem N/A Intervention/Recommendation Comments 1. Continue with regular diet as ordered. 2. Monitor PO intake, wt, labs and skin integrity 3. F/U as moderate risk in 3-5 days Expected Outcomes/Goals Expected Outcomes/Goals 1. PO intake to meet at least 75% of nutritional needs. 2. Wt stability, skin to remain intact, labs to approach WNL.
--- NOTE | 2018-12-13 02:04 | Progress Notes ---
DATE: 12/12/2018 Case was discussed with staff of the patient, reviewed records. The patient continues to be depressed, continues to be very slow to interact. Continues to be internally preoccupied, stays to himself. He previously worked in [employer]. He was not sure how long he went to school. Denies substance abuse. He is sleeping better, eating better. No side effects of the medication, no sedation, no nausea. I will be increasing Lexapro to 10 mg a day. Also, I would like to add Aricept to his medication to improve his cognition because of his poor memory and so far no side effects with the medication, no sedation, no nausea, no agitation and we will continue to work with participation in group therapy, milieu therapy, and adjust the medication as needed. JOB# [id number]
[2018-12-13] MEDS: Budesonide 0.5 Mg/2 mL Ud HHN SCH ×2 (07:04→21:04)
[2018-12-13] MEDS: Albuterol Nebulizer 2.5mg/3mL HHN SCH ×4 (07:04→21:04)
[2018-12-13] MEDS ORDERED: Escitalopram Oxalate 5 mg Tab PO SCH (09:00)
[2018-12-13] MEDS: Heparin Sod 5,000Units/ML 5,000 UNITS/ML VIAL SUBQ SCH ×2 (09:25→21:55)
[2018-12-13] MEDS: Menthol/Zinc Oxide Oint 113gm Tube TP SCH ×2 (09:26→16:19)
--- NOTE | 2018-12-13 21:42 | Internal Medicine Prog Note ---
Internal Medicine Subjective - Subjective Service Date: 12/13/18 Patient seen and examined:: with staff (HE FEELS GOOD,NO COMPLAIN) Patient is:: awake, confused Per staff patient has:: no adverse event Internal Medicine Objective - Results Result Diagrams: 12/08/18 22:18 12/08/18 22:18 Recent Labs: Laboratory Last Values WBC 6.9 Th/cmm (4.8-10.8) 12/08/18 22:18 RBC 3.76 Mil/cmm (3.80-5.80) L 12/08/18 22:18 Hgb 11.4 gm/dL (12-16) L 12/08/18 22:18 Hct 34.1 % (41.0-60) L 12/08/18 22:18 MCV 90.7 fl (80-99) 12/08/18 22:18 MCH 30.3 pg (27.0-31.0) 12/08/18 22:18 MCHC Differential 33.4 pg (28.0-36.0) 12/08/18 22:18 RDW 14.0 % (11.5-20.0) 12/08/18 22:18 Plt Count 274 Th/cmm (150-400) 12/08/18 22:18 MPV 8.4 fl 12/08/18 22:18 Neutrophils % 71.0 % (40.0-80.0) 12/08/18 22:18 Lymphocytes % 17.7 % (20.0-50.0) L 12/08/18 22:18 Monocytes % 8.1 % (2.0-10.0) 12/08/18 22:18 Eosinophils % 2.8 % (0.0-5.0) 12/08/18 22:18 Basophils % 0.4 % (0.0-2.0) 12/08/18 22:18 Sodium 144 mEq/L (136-145) 12/08/18 22:18 Potassium 3.7 mEq/L (3.5-5.1) 12/08/18 22:18 Chloride 107 mEq/L (98-107) 12/08/18 22:18 Carbon Dioxide 27.8 mEq/L (21.0-31.0) 12/08/18 22:18 Anion Gap 12.9 (7.0-16.0) 12/08/18 22:18 BUN 39 mg/dL (7-25) H 12/08/18 22:18 Creatinine 2.3 mg/dL (0.7-1.3) H 12/08/18 22:18 Est GFR ( Amer) TNP 12/08/18 22:18 Est GFR (Non-Af Amer) TNP 12/08/18 22:18 BUN/Creatinine Ratio 17.0 12/08/18 22:18 Glucose 115 mg/dL (70-105) H 12/08/18 22:18 Calcium 9.4 mg/dL (8.6-10.3) 12/08/18 22:18 Total Bilirubin 0.5 mg/dL (0.3-1.0) 12/08/18 22:18 AST 7 U/L (13-39) L 12/08/18 22:18 ALT 8 U/L (7-52) 12/08/18 22:18 Alkaline Phosphatase 49 U/L (34-104) 12/08/18 22:18 Total Protein 6.4 gm/dL (6.0-8.3) 12/08/18 22:18 Albumin 4.0 gm/dL (4.2-5.5) L 12/08/18 22:18 Globulin 2.4 gm/dL 12/08/18 22:18 Albumin/Globulin Ratio 1.7 (1.0-1.8) 12/08/18 22:18 Triglycerides 115 mg/dL (<150) 12/09/18 07:36 Cholesterol 195 mg/dL (<200) 12/09/18 07:36 LDL Cholesterol Direct 136 mg/dL (75-193) 12/09/18 07:36 HDL Cholesterol 40 mg/dL (23-92) 12/09/18 07:36 TSH 1.53 uIU/ml (0.34-5.60) 12/08/18 22:18 Valproic Acid 31.1 ug/mL (50.0-100.0) L 12/08/18 22:18 RPR NONREACTIVE (NONREACTIVE) 12/08/18 22:18 - Physical Exam Vitals and I&O: Vital Signs Temp 97.8 F 12/13/18 20:03 Pulse 73 12/13/18 20:15 Resp 18 12/13/18 20:15 BP 151/96 12/13/18 20:03 Pulse Ox 100 12/13/18 20:15 Intake & Output 12/13/18 12/13/18 12/14/18 06:59 18:59 06:59 Intake Total 480 240 Balance 480 240 Weight (lbs) 79.379 kg Intake: Oral 480 240 Other: # Voids 3 1 # Bowel Movements 0 Weight Source Bedscale Active Medications: Current Medications Acetaminophen (Tylenol) 650 mg PO Q4HR PRN PRN Reason: Pain or Fever >101 Stop: 02/07/19 01:05 Last Admin: 12/09/18 06:53 Dose: 650 mg Albuterol Sulfate (Albuterol 2.5mg/3ml Neb Ud) 2.5 mg HHN Q6HRT [facility] Stop: 02/07/19 07:59 Last Admin: 12/13/18 21:04 Dose: 2.5 mg Bisacodyl (Dulcolax 10 Mg Supp) 10 mg RC DAILY PRN PRN Reason: Constipation Stop: 02/07/19 01:05 Budesonide (Pulmicort) 0.5 mg HHN BIDRT [facility] Stop: 02/07/19 07:59 Last Admin: 12/13/18 21:04 Dose: 0.5 mg Calamine/Phenol (Calmoseptine) 1 appl TP BID [facility] Stop: 02/07/19 08:59 Last Admin: 12/13/18 16:19 Dose: 1 appl Divalproex Sodium (Depakote Er) 250 mg PO DAILY [facility]; Protocol Stop: 02/07/19 08:59 Last Admin: 12/13/18 09:25 Dose: 250 mg Donepezil HCl (Aricept) 5 mg PO HS [facility] Stop: 02/10/19 20:59 Last Admin: 12/12/18 21:11 Dose: 5 mg Escitalopram Oxalate (Lexapro) 10 mg PO DAILY [facility]; Protocol Stop: 02/11/19 08:59 Last Admin: 12/13/18 09:25 Dose: 10 mg Famotidine (Pepcid) 20 mg PO DAILY [facility] Stop: 02/07/19 08:59 Last Admin: 12/13/18 09:26 Dose: Not Given Fludrocortisone Acetate (Florinef) 0.1 mg PO BID [facility] Stop: 02/07/19 08:59 Last Admin: 12/13/18 16:19 Dose: 0.1 mg Heparin Sodium (Porcine) (Heparin) 5,000 units SUBQ Q12HR [facility] Stop: 02/07/19 08:59 Last Admin: 12/13/18 09:25 Dose: 5,000 units Magnesium Hydroxide (Milk Of Magnesia) 30 ml PO DAILY PRN PRN Reason: Constipation Stop: 02/07/19 01:05 Midodrine (Proamatine) 5 mg PO DAILY [facility] Stop: 02/07/19 08:59 Last Admin: 12/13/18 09:26 Dose: 5 mg Ondansetron HCl (Zofran Odt) 4 mg PO Q8HR PRN PRN Reason: Nausea Stop: 02/07/19 01:05 Senna (Senna) 8.6 mg PO BID [facility] Stop: 02/07/19 08:59 Last Admin: 12/13/18 16:19 Dose: 8.6 mg General: alert, demented HEENT: NC/AT, PERRLA, EOMI, anicteric sclerae, throat clear Neck: Supple, No JVD, No thyromegaly, +2 carotid pulse wo bruit, No LAD Cardiovascular: RRR, Normal S1, Normal S2, without murmur Abdomen: soft, non-tender Extremities: clear Neurological: no change Internal Medicine Assmt/Plan - Assessment Assessment: 1.COPD. 2.ANEMIA. 3.PSYCHOSIS. - Plan Plan: CONTINUE ON CURRENT MEDICATION AND DIET. Nutritional Asmnt/Malnutr-PDOC - Dietary Evaluation Malnutrition Findings (Please click <Entered> for more info): Nutritional Asmnt/Malnutrition Start: 12/09/18 10: 09 Text: Status: Complete Freq: Protocol: Document 12/09/18 10:09 LCHENG (Rec: 12/09/18 10:22 LCHENG [email or web address]) Nutritional Asmnt/Malnutrition Patient General Information Nutritional Screening High Risk Consult Diagnosis severe depression Pertinent Medical Hx/Surgical Hx chronic back pain Subjective Information Consult received for erythema to both buttocks. Lakhwinder Draper noted. Current Diet Order/ Nutrition Support regular Pertinent Medications pepcid, heparin, senna Pertinent Labs 5/2 BUN 39, Cr 2.3, GLucose 115, ALb 4.0 Nutritional Hx/Data Height 1.75 m Height (Calculated Centimeters) 175.3 Current Weight (lbs) 79.379 kg Weight (Calculated Kilograms) 79.4 Weight (Calculated Grams) 74236.7 [place] Body Weight 148 Body Mass Index (BMI) 25.8 Weight Status Overweight GI Symptoms GI Symptoms None Last BM none Difficult in: None Skin Integrity/Comment: erythema to R/L buttock Estimated Nutritional Goals BEE in Kcals: Using Current wt Calories/Kcals/Kg 23-27 Kcals Calculated 6130-7792 Protein: Using Current wt Protein g/k.8 Protein Calculated 63 Fluid: ml 1817-2133ml (1ml/kcal) Nutritional Problem No current Nutrition Prob Problem N/A Intervention/Recommendation Comments 1. Continue with regular diet as ordered. 2. Monitor PO intake, wt, labs and skin integrity 3. F/U as moderate risk in 3-5 days Expected Outcomes/Goals Expected Outcomes/Goals 1. PO intake to meet at least 75% of nutritional needs. 2. Wt stability, skin to remain intact, labs to approach WNL.
--- NOTE | 2018-12-13 22:19 | Progress Notes ---
DATE: 12/13/2018 FOLLOWUP PROGRESS NOTE PROGRESS ON THE UNIT: Case discussed with staff of the patient, reviewed records. Also talked to his who happened to be visiting with her sister. The patient is doing more or less the same. He continues to be depressed, isolating himself. He is also slow to respond. He tolerates the increase in Lexapro with no side effects, no sedation, and no nausea. Working on discharge plan. His said he will go back to the place where he was at. We will continue to work with the patient in group therapy and milieu therapy, adjust the medication as needed. JOB# [id number]
[2018-12-14] MEDS: Albuterol Nebulizer 2.5mg/3mL HHN SCH ×4 (00:26→18:49)
[2018-12-14] MEDS: Budesonide 0.5 Mg/2 mL Ud HHN SCH ×2 (06:46→18:49)
[2018-12-14] MEDS: Menthol/Zinc Oxide Oint 113gm Tube TP SCH ×2 (08:38→16:16)
[2018-12-14] MEDS: Heparin Sod 5,000Units/ML 5,000 UNITS/ML VIAL SUBQ SCH ×2 (08:39→21:20)
--- NOTE | 2018-12-14 21:37 | Progress Notes ---
DATE: 12/14/2018 SUBJECTIVE: Case was discussed with staff of the patient, reviewed records. The patient continues to stay to himself. Continues to have difficulty answering questions, taking long time to answer questions. He is compliant with the medication with no side effects, no sedation, no nausea, no extrapyramidal symptoms. Tolerating increase in Lexapro yesterday with no side effects. No sedation, no nausea. We will continue to work with the patient in group therapy and milieu therapy and adjust the medication as needed. JOB# [id number]
--- NOTE | 2018-12-14 23:45 | Internal Medicine Prog Note ---
Internal Medicine Subjective - Subjective Service Date: 12/14/18 Patient seen and examined:: without staff Patient is:: awake, confused Per staff patient has:: no adverse event Internal Medicine Objective - Results Result Diagrams: 12/08/18 22:18 12/08/18 22:18 Recent Labs: Laboratory Last Values WBC 6.9 Th/cmm (4.8-10.8) 12/08/18 22:18 RBC 3.76 Mil/cmm (3.80-5.80) L 12/08/18 22:18 Hgb 11.4 gm/dL (12-16) L 12/08/18 22:18 Hct 34.1 % (41.0-60) L 12/08/18 22:18 MCV 90.7 fl (80-99) 12/08/18 22:18 MCH 30.3 pg (27.0-31.0) 12/08/18 22:18 MCHC Differential 33.4 pg (28.0-36.0) 12/08/18 22:18 RDW 14.0 % (11.5-20.0) 12/08/18 22:18 Plt Count 274 Th/cmm (150-400) 12/08/18 22:18 MPV 8.4 fl 12/08/18 22:18 Neutrophils % 71.0 % (40.0-80.0) 12/08/18 22:18 Lymphocytes % 17.7 % (20.0-50.0) L 12/08/18 22:18 Monocytes % 8.1 % (2.0-10.0) 12/08/18 22:18 Eosinophils % 2.8 % (0.0-5.0) 12/08/18 22:18 Basophils % 0.4 % (0.0-2.0) 12/08/18 22:18 Sodium 144 mEq/L (136-145) 12/08/18 22:18 Potassium 3.7 mEq/L (3.5-5.1) 12/08/18 22:18 Chloride 107 mEq/L (98-107) 12/08/18 22:18 Carbon Dioxide 27.8 mEq/L (21.0-31.0) 12/08/18 22:18 Anion Gap 12.9 (7.0-16.0) 12/08/18 22:18 BUN 39 mg/dL (7-25) H 12/08/18 22:18 Creatinine 2.3 mg/dL (0.7-1.3) H 12/08/18 22:18 Est GFR ( Amer) TNP 12/08/18 22:18 Est GFR (Non-Af Amer) TNP 12/08/18 22:18 BUN/Creatinine Ratio 17.0 12/08/18 22:18 Glucose 115 mg/dL (70-105) H 12/08/18 22:18 Calcium 9.4 mg/dL (8.6-10.3) 12/08/18 22:18 Total Bilirubin 0.5 mg/dL (0.3-1.0) 12/08/18 22:18 AST 7 U/L (13-39) L 12/08/18 22:18 ALT 8 U/L (7-52) 12/08/18 22:18 Alkaline Phosphatase 49 U/L (34-104) 12/08/18 22:18 Total Protein 6.4 gm/dL (6.0-8.3) 12/08/18 22:18 Albumin 4.0 gm/dL (4.2-5.5) L 12/08/18 22:18 Globulin 2.4 gm/dL 12/08/18 22:18 Albumin/Globulin Ratio 1.7 (1.0-1.8) 12/08/18 22:18 Triglycerides 115 mg/dL (<150) 12/09/18 07:36 Cholesterol 195 mg/dL (<200) 12/09/18 07:36 LDL Cholesterol Direct 136 mg/dL (75-193) 12/09/18 07:36 HDL Cholesterol 40 mg/dL (23-92) 12/09/18 07:36 TSH 1.53 uIU/ml (0.34-5.60) 12/08/18 22:18 Valproic Acid 31.1 ug/mL (50.0-100.0) L 12/08/18 22:18 RPR NONREACTIVE (NONREACTIVE) 12/08/18 22:18 - Physical Exam Vitals and I&O: Vital Signs Temp 98.4 F 12/14/18 22:07 Pulse 75 12/14/18 22:07 Resp 18 12/14/18 22:07 BP 141/88 12/14/18 22:07 Pulse Ox 98 12/14/18 22:07 Intake & Output 12/14/18 12/14/18 12/15/18 06:59 18:59 06:59 Intake Total 360 960 Balance 360 960 Intake: Oral 360 960 Other: # Voids 1 3 # Bowel Movements 0 0 Active Medications: Current Medications Acetaminophen (Tylenol) 650 mg PO Q4HR PRN PRN Reason: Pain or Fever >101 Stop: 02/07/19 01:05 Last Admin: 12/09/18 06:53 Dose: 650 mg Albuterol Sulfate (Albuterol 2.5mg/3ml Neb Ud) 2.5 mg HHN Q6HRT [facility] Stop: 02/07/19 07:59 Last Admin: 12/14/18 18:49 Dose: 2.5 mg Bisacodyl (Dulcolax 10 Mg Supp) 10 mg RC DAILY PRN PRN Reason: Constipation Stop: 02/07/19 01:05 Budesonide (Pulmicort) 0.5 mg HHN BIDRT [facility] Stop: 02/07/19 07:59 Last Admin: 12/14/18 18:49 Dose: 0.5 mg Calamine/Phenol (Calmoseptine) 1 appl TP BID [facility] Stop: 02/07/19 08:59 Last Admin: 12/14/18 16:16 Dose: 1 appl Divalproex Sodium (Depakote Er) 250 mg PO DAILY [facility]; Protocol Stop: 02/07/19 08:59 Last Admin: 12/14/18 08:39 Dose: 250 mg Donepezil HCl (Aricept) 5 mg PO HS [facility] Stop: 02/10/19 20:59 Last Admin: 12/14/18 21:19 Dose: 5 mg Escitalopram Oxalate (Lexapro) 10 mg PO DAILY [facility]; Protocol Stop: 02/11/19 08:59 Last Admin: 12/14/18 08:39 Dose: 10 mg Famotidine (Pepcid) 20 mg PO DAILY [facility] Stop: 02/07/19 08:59 Last Admin: 12/14/18 08:38 Dose: 20 mg Fludrocortisone Acetate (Florinef) 0.1 mg PO BID [facility] Stop: 02/07/19 08:59 Last Admin: 12/14/18 16:16 Dose: 0.1 mg Heparin Sodium (Porcine) (Heparin) 5,000 units SUBQ Q12HR [facility] Stop: 02/07/19 08:59 Last Admin: 12/14/18 21:20 Dose: 5,000 units Magnesium Hydroxide (Milk Of Magnesia) 30 ml PO DAILY PRN PRN Reason: Constipation Stop: 02/07/19 01:05 Midodrine (Proamatine) 5 mg PO DAILY [facility] Stop: 02/07/19 08:59 Last Admin: 12/14/18 08:38 Dose: 5 mg Ondansetron HCl (Zofran Odt) 4 mg PO Q8HR PRN PRN Reason: Nausea Stop: 02/07/19 01:05 Senna (Senna) 8.6 mg PO BID [facility] Stop: 02/07/19 08:59 Last Admin: 12/14/18 16:16 Dose: 8.6 mg General: alert, demented HEENT: NC/AT, PERRLA, EOMI, anicteric sclerae, throat clear Neck: Supple, No JVD, No thyromegaly, +2 carotid pulse wo bruit, No LAD Cardiovascular: RRR, Normal S1, Normal S2, without murmur Abdomen: soft, non-tender Extremities: clear Neurological: no change Internal Medicine Assmt/Plan - Assessment Assessment: 1.COPD. 2.ANEMIA. 3.PSYCHOSIS. - Plan Plan: CONTINUE ON CURRENT MEDICATION AND DIET. Nutritional Asmnt/Malnutr-PDOC - Dietary Evaluation Malnutrition Findings (Please click <Entered> for more info): Nutritional Asmnt/Malnutrition Start: 12/09/18 10: 09 Text: Status: Complete Freq: Protocol: Document 12/09/18 10:09 LCHENG (Rec: 12/09/18 10:22 PARASG [email or web address]) Nutritional Asmnt/Malnutrition Patient General Information Nutritional Screening High Risk Consult Diagnosis severe depression Pertinent Medical Hx/Surgical Hx chronic back pain Subjective Information Consult received for erythema to both buttocks. Lakhwinder Draper noted. Current Diet Order/ Nutrition Support regular Pertinent Medications pepcid, heparin, senna Pertinent Labs 12/08 BUN 39, Cr 2.3, GLucose 115, ALb 4.0 Nutritional Hx/Data Height 1.75 m Height (Calculated Centimeters) 175.3 Current Weight (lbs) 79.379 kg Weight (Calculated Kilograms) 79.4 Weight (Calculated Grams) 25471.7 [place] Body Weight 148 Body Mass Index (BMI) 25.8 Weight Status Overweight GI Symptoms GI Symptoms None Last BM none Difficult in: None Skin Integrity/Comment: erythema to R/L buttock Estimated Nutritional Goals BEE in Kcals: Using Current wt Calories/Kcals/Kg 23-27 Kcals Calculated 1726-7357 Protein: Using Current wt Protein g/k.8 Protein Calculated 63 Fluid: ml 1817-2133ml (1ml/kcal) Nutritional Problem No current Nutrition Prob Problem N/A Intervention/Recommendation Comments 1. Continue with regular diet as ordered. 2. Monitor PO intake, wt, labs and skin integrity 3. F/U as moderate risk in 3-5 days Expected Outcomes/Goals Expected Outcomes/Goals 1. PO intake to meet at least 75% of nutritional needs. 2. Wt stability, skin to remain intact, labs to approach WNL.
[2018-12-15] MEDS: Albuterol Nebulizer 2.5mg/3mL HHN SCH ×4 (00:23→19:33)
[2018-12-15] MEDS: Budesonide 0.5 Mg/2 mL Ud HHN SCH ×2 (07:38→19:33)
[2018-12-15] MEDS: Heparin Sod 5,000Units/ML 5,000 UNITS/ML VIAL SUBQ SCH ×2 (09:57→21:53)
[2018-12-15] MEDS: Menthol/Zinc Oxide Oint 113gm Tube TP SCH (09:59)
--- NOTE | 2018-12-15 16:32 | Internal Medicine Prog Note ---
Internal Medicine Subjective - Subjective Service Date: 12/15/18 Patient seen and examined:: without staff (HE FEELSGOOD) Patient is:: awake, confused Per staff patient has:: no adverse event Internal Medicine Objective - Results Result Diagrams: 12/08/18 22:18 12/08/18 22:18 Recent Labs: Laboratory Last Values WBC 6.9 Th/cmm (4.8-10.8) 12/08/18 22:18 RBC 3.76 Mil/cmm (3.80-5.80) L 12/08/18 22:18 Hgb 11.4 gm/dL (12-16) L 12/08/18 22:18 Hct 34.1 % (41.0-60) L 12/08/18 22:18 MCV 90.7 fl (80-99) 12/08/18 22:18 MCH 30.3 pg (27.0-31.0) 12/08/18 22:18 MCHC Differential 33.4 pg (28.0-36.0) 12/08/18 22:18 RDW 14.0 % (11.5-20.0) 12/08/18 22:18 Plt Count 274 Th/cmm (150-400) 12/08/18 22:18 MPV 8.4 fl 12/08/18 22:18 Neutrophils % 71.0 % (40.0-80.0) 12/08/18 22:18 Lymphocytes % 17.7 % (20.0-50.0) L 12/08/18 22:18 Monocytes % 8.1 % (2.0-10.0) 12/08/18 22:18 Eosinophils % 2.8 % (0.0-5.0) 12/08/18 22:18 Basophils % 0.4 % (0.0-2.0) 12/08/18 22:18 Sodium 144 mEq/L (136-145) 12/08/18 22:18 Potassium 3.7 mEq/L (3.5-5.1) 12/08/18 22:18 Chloride 107 mEq/L (98-107) 12/08/18 22:18 Carbon Dioxide 27.8 mEq/L (21.0-31.0) 12/08/18 22:18 Anion Gap 12.9 (7.0-16.0) 12/08/18 22:18 BUN 39 mg/dL (7-25) H 12/08/18 22:18 Creatinine 2.3 mg/dL (0.7-1.3) H 12/08/18 22:18 Est GFR ( Amer) TNP 12/08/18 22:18 Est GFR (Non-Af Amer) TNP 12/08/18 22:18 BUN/Creatinine Ratio 17.0 12/08/18 22:18 Glucose 115 mg/dL (70-105) H 12/08/18 22:18 Calcium 9.4 mg/dL (8.6-10.3) 12/08/18 22:18 Total Bilirubin 0.5 mg/dL (0.3-1.0) 12/08/18 22:18 AST 7 U/L (13-39) L 12/08/18 22:18 ALT 8 U/L (7-52) 12/08/18 22:18 Alkaline Phosphatase 49 U/L (34-104) 12/08/18 22:18 Total Protein 6.4 gm/dL (6.0-8.3) 12/08/18 22:18 Albumin 4.0 gm/dL (4.2-5.5) L 12/08/18 22:18 Globulin 2.4 gm/dL 12/08/18 22:18 Albumin/Globulin Ratio 1.7 (1.0-1.8) 12/08/18 22:18 Triglycerides 115 mg/dL (<150) 12/09/18 07:36 Cholesterol 195 mg/dL (<200) 12/09/18 07:36 LDL Cholesterol Direct 136 mg/dL (75-193) 12/09/18 07:36 HDL Cholesterol 40 mg/dL (23-92) 12/09/18 07:36 TSH 1.53 uIU/ml (0.34-5.60) 12/08/18 22:18 Valproic Acid 31.1 ug/mL (50.0-100.0) L 12/08/18 22:18 RPR NONREACTIVE (NONREACTIVE) 12/08/18 22:18 - Physical Exam Vitals and I&O: Vital Signs Temp 98.1 F 12/15/18 07:00 Pulse 78 12/15/18 14:29 Resp 20 12/15/18 14:29 BP 145/87 12/15/18 07:00 Pulse Ox 97 12/15/18 14:29 Intake & Output 12/14/18 12/15/18 12/15/18 18:59 06:59 18:59 Intake Total 960 120 Balance 960 120 Intake: Oral 960 120 Other: # Voids 3 2 # Bowel Movements 0 0 Active Medications: Current Medications Acetaminophen (Tylenol) 650 mg PO Q4HR PRN PRN Reason: Pain or Fever >101 Stop: 02/07/19 01:05 Last Admin: 12/09/18 06:53 Dose: 650 mg Albuterol Sulfate (Albuterol 2.5mg/3ml Neb Ud) 2.5 mg HHN Q6HRT [facility] Stop: 02/07/19 07:59 Last Admin: 12/15/18 14:29 Dose: 2.5 mg Bisacodyl (Dulcolax 10 Mg Supp) 10 mg RC DAILY PRN PRN Reason: Constipation Stop: 02/07/19 01:05 Budesonide (Pulmicort) 0.5 mg HHN BIDRT [facility] Stop: 02/07/19 07:59 Last Admin: 12/15/18 07:38 Dose: 0.5 mg Calamine/Phenol (Calmoseptine) 1 appl TP BID [facility] Stop: 02/07/19 08:59 Last Admin: 12/15/18 09:59 Dose: 1 appl Divalproex Sodium (Depakote Er) 250 mg PO DAILY [facility]; Protocol Stop: 02/07/19 08:59 Last Admin: 12/15/18 09:58 Dose: 250 mg Donepezil HCl (Aricept) 5 mg PO HS [facility] Stop: 02/10/19 20:59 Last Admin: 12/14/18 21:19 Dose: 5 mg Escitalopram Oxalate (Lexapro) 10 mg PO DAILY [facility]; Protocol Stop: 02/11/19 08:59 Last Admin: 12/15/18 09:58 Dose: 10 mg Famotidine (Pepcid) 20 mg PO DAILY [facility] Stop: 02/07/19 08:59 Last Admin: 12/15/18 09:57 Dose: 20 mg Fludrocortisone Acetate (Florinef) 0.1 mg PO BID [facility] Stop: 02/07/19 08:59 Last Admin: 12/15/18 09:58 Dose: 0.1 mg Heparin Sodium (Porcine) (Heparin) 5,000 units SUBQ Q12HR [facility] Stop: 02/07/19 08:59 Last Admin: 12/15/18 09:57 Dose: 5,000 units Magnesium Hydroxide (Milk Of Magnesia) 30 ml PO DAILY PRN PRN Reason: Constipation Stop: 02/07/19 01:05 Midodrine (Proamatine) 5 mg PO DAILY [facility] Stop: 02/07/19 08:59 Last Admin: 12/15/18 09:59 Dose: 5 mg Ondansetron HCl (Zofran Odt) 4 mg PO Q8HR PRN PRN Reason: Nausea Stop: 02/07/19 01:05 Senna (Senna) 8.6 mg PO BID [facility] Stop: 02/07/19 08:59 Last Admin: 12/15/18 09:57 Dose: 8.6 mg General: alert, demented HEENT: NC/AT, PERRLA, EOMI, anicteric sclerae, throat clear Neck: Supple, No JVD, No thyromegaly, +2 carotid pulse wo bruit, No LAD Cardiovascular: RRR, Normal S1, Normal S2, without murmur Abdomen: soft, non-tender Extremities: clear Neurological: no change Internal Medicine Assmt/Plan - Assessment Assessment: 1.COPD. 2.ANEMIA. 3.PSYCHOSIS. - Plan Plan: CONTINUE ON CURRENT MEDICATION AND DIET. Nutritional Asmnt/Malnutr-PDOC - Dietary Evaluation Malnutrition Findings (Please click <Entered> for more info): Nutritional Asmnt/Malnutrition Start: 12/09/18 10: 09 Text: Status: Complete Freq: Protocol: Document 12/09/18 10:09 LCHENG (Rec: 12/09/18 10:22 LCHENG [email or web address]) Nutritional Asmnt/Malnutrition Patient General Information Nutritional Screening High Risk Consult Diagnosis severe depression Pertinent Medical Hx/Surgical Hx chronic back pain Subjective Information Consult received for erythema to both buttocks. Lakhwinder Draper noted. Current Diet Order/ Nutrition Support regular Pertinent Medications pepcid, heparin, senna Pertinent Labs / BUN 39, Cr 2.3, GLucose 115, ALb 4.0 Nutritional Hx/Data Height 1.75 m Height (Calculated Centimeters) 175.3 Current Weight (lbs) 79.379 kg Weight (Calculated Kilograms) 79.4 Weight (Calculated Grams) 91047.7 [place] Body Weight 148 Body Mass Index (BMI) 25.8 Weight Status Overweight GI Symptoms GI Symptoms None Last BM none Difficult in: None Skin Integrity/Comment: erythema to R/L buttock Estimated Nutritional Goals BEE in Kcals: Using Current wt Calories/Kcals/Kg 23-27 Kcals Calculated 9565-0317 Protein: Using Current wt Protein g/k.8 Protein Calculated 63 Fluid: ml 1817-2133ml (1ml/kcal) Nutritional Problem No current Nutrition Prob Problem N/A Intervention/Recommendation Comments 1. Continue with regular diet as ordered. 2. Monitor PO intake, wt, labs and skin integrity 3. F/U as moderate risk in 3-5 days Expected Outcomes/Goals Expected Outcomes/Goals 1. PO intake to meet at least 75% of nutritional needs. 2. Wt stability, skin to remain intact, labs to approach WNL.
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
[2018-12-16] MEDS: Albuterol Nebulizer 2.5mg/3mL HHN SCH ×3 (00:55→14:53)
[2018-12-16] MEDS: Budesonide 0.5 Mg/2 mL Ud HHN SCH (07:24)
[2018-12-16] MEDS: Heparin Sod 5,000Units/ML 5,000 UNITS/ML VIAL SUBQ SCH (08:48)
[2018-12-16] MEDS: Menthol/Zinc Oxide Oint 113gm Tube TP SCH ×2 (08:53→16:48)
--- NOTE | 2018-12-16 14:52 | Discharge Summary ---
DATE OF DISCHARGE: 12/16/2018 IDENTIFYING INFORMATION: The patient is a 73-year-old male. HISTORY OF PRESENT ILLNESS: The patient was admitted because of depression, agitation, suicidal ideation, no specific plan. The patient reports he has been unable to sleep, unable to eat. His reported that they lost their apartment few weeks ago and now he lives in a nursing facility and has been depressed since then. He also has been having poor memory. The patient denies prior psychiatric treatment. Denies prior suicide attempt. COURSE IN THE HOSPITAL: The patient was started on Lexapro 5 mg and increased the dose to 10 mg. Also was given Depakote 250 mg daily. He also ____ Aricept 10 mg at bedtime as well as he was kept on the albuterol inhaler and fludrocortisone acetate. Patient progressively got better. He was no longer acting in anyway depressed or suicidal. He was sleeping well, eating well. He is on Lexapro with no side effect, so he will be going back to [facility], where he was going. So as he was doing well, we felt he could be discharged to a lesser level of care. He will be going to [facility] to follow up with the psychiatrist and primary care physician in that facility. 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 MEDICAL DIAGNOSES: As per medical doctor. The patient will follow up with psychiatrist, primary care physician and therapist. EXPECTED OUTCOME: Stable if the patient complies with the above. [facility]# [id number]
== END 2018-12-16 17:30 | DRG 885 ==
LOC: ER 21:58 → GERO 23:40
PROVIDERS: ADMIT Psychiatry & Neurology Psychiatry; ATTEND Psychiatry & Neurology Psychiatry
DX: F33.2 Major depressive disorder, recurrent severe without psychotic features (principal); N18.9 Chronic kidney disease, unspecified; G89.29 Other chronic pain; F17.210 Nicotine dependence, cigarettes, uncomplicated; K21.9 Gastro-esophageal reflux disease without esophagitis; J44.9 Chronic obstructive pulmonary disease, unspecified; D64.9 Anemia, unspecified; F29 Unspecified psychosis not due to a substance or known physiological condition
CPT/HCPCS: 36415-UA; 80053-TC; 80061-TC; 80164-TC; 83036-90; 84443-TC; 85025-TC; 86592-TC; 93005; 94760; 97530; J1644; J7613; Z7610